=== PATIENT | female | born 1960 | race Caucasian/White ===

== ENCOUNTER → 2019-12-13 | Outpatient (CLI) | payer BC, OTHER ==
--- NOTE | 2019-12-13 15:08 | REP ---
INDICATION: MENIERE DX, MIGRAINE. COMPARISON: None. TECHNIQUE: Axial and sagittal imaging planes are utilized for T1 and T2-weighted scans. Sequences include spin-echo, fast spin echo, FLAIR, and diffusion weighted sequences. FINDINGS: No bony calvarial lesion is seen. Craniocervical junction and upper cervical cord are normal in appearance. There is no MR evidence of significant paranasal sinus disease. No intraorbital abnormality is seen. The lateral, third, and fourth ventricles are normal in size and position. Weathers-white differentiation pattern is intact above and below the tentorium. There is no evidence of intracranial hemorrhage. No mass, infarction, extra-axial fluid collection or midline shift is seen. No abnormal white matter lesion is seen. IMPRESSION: Negative noncontrast brain MRI study. <Electronically signed by Jose Samuels > 12/13/19 3020
== END ==
LOC: M PLARAD 12:29
PROVIDERS: ATTEND Otolaryngology
DX: G43.019 Migraine without aura, intractable, without status migrainosus (principal); H81.09 Meniere's disease, unspecified ear

== ENCOUNTER 2023-05-18 09:44 | Observation (INO) | payer MEDICARE, BC ==
[~2023-05-18] VITALS: Ht 165.1 cm; Wt 72.9 kg
[2023-05-18] VITALS (8 sets, daily range): BP systolic 117–158; BP diastolic 55–67; TEMP 97–98.8; O2SAT 64–96
[~2023-05-18 09:44] MED LIST: CENT1TAB PO; D3 M1CAP2 PO; GNP650TA8 PO; OMEP-173 PO; PRAZ2CAP PO; SERT50TA29 PO; TRAZ-252 PO; UBRO50TA PO; VITA500065 PO
[2023-05-18] MEDS ORDERED: LR 1,000 ML IV SCH (10:30)
[2023-05-18] MEDS ORDERED: propofoL 200 MG/20 ML VIAL As Ordered ONE (10:33)
[2023-05-18] MEDS ORDERED: dexmedeTOMIDine (4MCG/ML)200MCG/50ML BTL (PRECEDEX) As Ordered ONE (10:33)
[2023-05-18] MEDS ORDERED: LIDOCAINE 2% 100MG/5ML SDV (FOR ANES.) As Ordered ONE (10:33)
[2023-05-18] MEDS ORDERED: SUGAMMADEX SODIUM 500 MG/5 ML VIAL (BRIDION) As Ordered ONE (10:33)
[2023-05-18] MEDS ORDERED: ROCURONIUM BROMIDE 50MG/5ML VIAL As Ordered ONE (10:33)
[2023-05-18] MEDS ORDERED: ONDANSETRON 4MG 2ML VIAL As Ordered ONE (10:33)
[2023-05-18] MEDS ORDERED: MIDAZOLAM INJ 2MG/2ML VIAL As Ordered ONE (10:34)
[2023-05-18] MEDS ORDERED: fentaNYL 250 MCG/5 ML INJECTION As Ordered ONE (10:34)
[2023-05-18] MEDS ORDERED: SEVOFLURANE INHAL SOLN 250 ML BTL As Ordered ONE (10:48)
[2023-05-18] MEDS ORDERED: B-122500 PO (11:01)
[2023-05-18] MEDS ORDERED: ACET-683 PO (11:01)
[2023-05-18] MEDS ORDERED: HOME MED LIST COMPLETE! XX SCH (11:05)
[2023-05-18] MEDS: GENTAMICIN SULF 80MG/2ML VIAL As Ordered ONE (13:16)
[2023-05-18] MEDS: CLINDAMYCIN 900MG/50ML PREMIX BAG As Ordered ONE (13:20)
[2023-05-18] MEDS: HEPARIN SOD (PORCINE) 5000UNITS/ML 1ML VIAL/SYRINGE As Ordered ONE (13:20)
[2023-05-18] MEDS ORDERED: ACETAMINOPHEN 1000MG 100ML IV BAG As Ordered ONE (14:11)
[2023-05-18] MEDS ORDERED: HYDROmorphone HCL 2MG/ML 1ML VIAL As Ordered ONE (14:11)
[2023-05-18] MEDS ORDERED: LACRILUBE (AKWA TEARS) OPHTH OINT 3.5GM As Ordered ONE (14:11)
[2023-05-18] MEDS ORDERED: fentaNYL 100 MCG/2 ML INJECTION IV PRN (16:50)
[2023-05-18] MEDS ORDERED: HYDROMORPHONE HCL 0.5 MG/ 0.5 ML SYRINGE IV PRN (16:50)
[2023-05-18] MEDS ORDERED: ONDANSETRON 4MG 2ML VIAL IV PRN (17:20)
[2023-05-18] MEDS ORDERED: PERCOCET 5MG/325MG TAB PO PRN (17:20)
[2023-05-18] MEDS: METOCLOPRAMIDE INJ 10MG/2ML VIAL IV PRN (17:45)
[2023-05-18] MEDS: oxyCODONE 5MG TAB PO PRN (17:45)
[2023-05-18] MEDS: ONDANSETRON 4MG 2ML VIAL IV PRN (17:46)
[2023-05-18] MEDS: LR 1,000 ML IV SCH ×2 (18:30→21:00)
[2023-05-18] MEDS: SERTRALINE HCL 50 MG TAB PO SCH (20:52)
[2023-05-18] MEDS: traZODone 50 MG TAB PO SCH (20:53)
[2023-05-18] MEDS: PRAZOSIN 1 MG CAP PO SCH (20:53)
[2023-05-18] MEDS: ACETAMINOPHEN TAB 650MG DOSE (2X325MG) PO PRN (21:49)
[2023-05-19 03:25] VITALS: BP 103/55; TEMP 96.8; O2SAT 96
[2023-05-19] MEDS: MULTIVITAMINS/MINERALS THERAP 1 TAB PO SCH (08:49)
[2023-05-19] MEDS: CYANOCOBALAMIN 500 MCG TAB PO SCH (08:49)
[2023-05-19 10:04] LABS: HEMATOCRIT 33.8 % (36.0-47.0); MEAN CORPUSCULAR HEMOGLOBIN 31.6 pg (27.0-33.0); MEAN CORPUSCULAR HGB CONC 32.5 g/dl (32.0-36.5); MEAN CORPUSCULAR VOLUME 97.1 fl (80.0-96.0); PLATELET COUNT, AUTOMATED 165 10^3/uL (150-450); RED BLOOD COUNT 3.48 10^6/uL (4.00-5.40); WHITE BLOOD COUNT 7.9 10^3/uL (4.0-10.0)
[2023-05-19] MEDS: traMADol 50 MG TAB PO PRN (11:16)
[2023-05-19] MEDS ORDERED: TRAM50TA2 PO ×2 (11:43→14:47)
== END 2023-05-19 13:15 | disposition home or self-care (01) ==
LOC: M SDC 09:44 → M RR INP 09:45 → M MS5PR 18:25
PROVIDERS: ADMIT Plastic Surgery Surgery of the Hand; ATTEND Plastic Surgery Surgery of the Hand
DX: M54.07 Panniculitis affecting regions of neck and back, lumbosacral region (principal); Z98.84 Bariatric surgery status; K21.9 Gastro-esophageal reflux disease without esophagitis; F41.9 Anxiety disorder, unspecified; F32.A Depression, unspecified; Z79.899 Other long term (current) drug therapy; Z88.0 Allergy status to penicillin; Z88.8 Allergy status to other drugs, medicaments and biological substances; G43.909 Migraine, unspecified, not intractable, without status migrainosus
CPT/HCPCS: 15830; 15847; 36415; 85027; 88302; C9290; G0378; J0131; J0665; J0737; J1100; J1170; J1580; J2250; J2405; J2765; J3010

== ENCOUNTER → 2023-07-14 | Outpatient (REF) | payer MEDICARE, OTHER ==
[~2023-07-14] MED LIST changes: +ACET-683 PO; +B-122500 PO; +TRAM50TA2 PO
== END ==
LOC: M LAB REF 12:19
PROVIDERS: ATTEND Physician Assistant
DX: M54.07 Panniculitis affecting regions of neck and back, lumbosacral region (principal); Z48.817 Encounter for surgical aftercare following surgery on the skin and subcutaneous tissue